=== PATIENT | male | born 2000 | race Caucasian/White ===

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

== ENCOUNTER 2023-12-07 18:58 | Emergency (ER) | payer OTHER ==
[~2023-12-07] VITALS: Ht 177.8 cm; Wt 81.7 kg
[2023-12-07 19:16] VITALS: BP 171/83
[2023-12-07] MEDS ORDERED: Ondansetron HCl 2 MG / ML 2ML Vial IV PRN (19:20)
[2023-12-07 19:38] LABS: BASOPHILS ABSOLUTE AUTO 0.07 K/mm3 (0.00-0.23); BASOPHILS PERCENT AUTO 1 % (0-2); EOSINOPHILS ABSOLUTE AUTO 0.16 K/mm3 (0.00-0.68); EOSINOPHILS PERCENT AUTO 3 % (0-6); Hemoglobin 15.6 g/dL (13.5-17.5); IMMATURE GRAN ABSOLUTE AUTO 0.03 K/mm3 (0.00-0.10); IMMATURE GRAN PERCENT AUTO 1 % (0-1); LYMPHOCYTES PERCENT AUTO 37 % (21-46); MONOCYTES ABSOLUTE AUTO 0.61 K/mm3 (0.16-1.47); MONOCYTES PERCENT AUTO 9 % (4-13); Mean Corpuscular HGB 29.8 pg (26.0-34.0); Mean Corpuscular HGB Conc 34.7 g/dL (31.5-36.5); Mean Corpuscular Volume 86 fL (80-100); Mean Platelet Volume 8.4 fL (9.1-12.4); NEUTROPHILS ABSOLUTE AUTO 3.23 K/mm3 (1.96-9.15); NEUTROPHILS PERCENT AUTO 50 % (41-73); Platelet Count 277 K/mm3 (150-400); RDW Coefficient Variation 11.9 % (11.7-14.2); RDW Standard Deviation 37.7 fL (35.1-46.3); Red Blood Cell Count 5.24 M/mm3 (4.30-5.90)
[2023-12-07 20:09] LABS: Albumin, Blood 4.6 g/dL (3.4-5.0); Albumin/Globulin Ratio 1.6 (0.8-1.8); Bilirubin, Total 1.1 mg/dL (0.1-1.0); Calcium, Blood 9.6 mg/dL (8.5-10.1); Globulin, Blood 2.9 g/dL (2.2-4.0); Potassium, Blood 3.8 mmol/L (3.5-5.5); Total Protein, Blood 7.5 g/dL (6.4-8.2)
[2023-12-07 21:34] LABS: Source, Urine Clean Catch
[2023-12-07 21:39] LABS: Bilirubin, Urine Neg (Neg); Blood, Urine Neg (Neg); Glucose Qualitative, Urine Neg (Neg); Ketones, Urine Neg (Neg); Leukocyte Esterase, Urine Neg (Neg); Nitrite, Urine Neg (Neg); Protein, Urine Neg (Neg); Urobilinogen, Urine NORM (Normal)
[2023-12-07 21:41] LABS: Appearance, Urine Clear (Clear); Color, Urine Yellow (P-Yellow)
[2023-12-07] MEDS ORDERED: Acetaminophen 500 MG Tab PO ONE (22:15)
[2023-12-07] MEDS ORDERED: Famotidine 10 MG/ML 2ML Vial IV ONE (22:15)
[2023-12-07] MEDS ORDERED: ONDA4ODT MM (23:04)
[2023-12-07] MEDS ORDERED: FAMO20 PO (23:04)
== END 2023-12-07 23:44 | disposition home or self-care (01) ==
LOC: ER 18:58
PROVIDERS: Student in an Organized Health Care Education/Training Program
DX: R10.13 Epigastric pain (principal); R74.01 Elevation of levels of liver transaminase levels
CPT/HCPCS: 76705; 80053; 81003; 83690; 85025; 99284-25; A9270